=== PATIENT | female | born 1990 | race Two or more races ===

== ENCOUNTER 2021-02-21 11:10 | Emergency (ER) | payer MEDICAID, SELFPAY | END 2021-02-21 14:43 | disposition left against medical advice (07) | LOC: HO.ED 14:22 | PROVIDERS: Emergency Provider Emergency Medicine | DX: N94.89 Other specified conditions associated with female genital organs and menstrual cycle (principal) ==

== ENCOUNTER 2021-02-21 23:32 | Emergency (ER) | payer MEDICAID, SELFPAY ==
[2021-02-21 23:50] VITALS: BP 112/75; PULSE 98; RESP 20; TEMP 36.6; O2SAT 100; BMI 23.8
== END 2021-02-22 00:06 | disposition left against medical advice (07) ==
PROVIDERS: Emergency Provider Emergency Medicine
DX: N89.8 Other specified noninflammatory disorders of vagina (principal); Z20.2 Contact with and (suspected) exposure to infections with a predominantly sexual mode of transmission
CPT/HCPCS: 99281; 99282

== ENCOUNTER 2021-02-23 01:42 | Emergency (ER) | payer MEDICAID, SELFPAY ==
[2021-02-23 01:57] VITALS: BP 111/75; PULSE 92; RESP 16; TEMP 36.6; O2SAT 100; BMI 26.9
--- NOTE | 2021-02-23 04:03 | ED.FEMALEGU ---
HPI - Female Genitourinary General Chief complaint: Urogenital-Female Stated complaint: ?Tampon stuck Time Seen by Provider: 02/23/21 03:56 Source: patient Limitations: no limitations History of Present Illness HPI Narrative: This is a 30-year-old female who has noted for the last few days that she has had malodorous vaginal discharge. She is concerned she might have left a tampon in. She. She denies any fever. She denies any dysuria or urinary frequency. She has had some mild pelvic cramping. She denies any nausea vomiting Related Data Previous Rx's Medication Instructions Recorded cephalexin 500 mg capsule 500 mg PO TID #20 cap 02/23/21 metronidazole 500 mg tablet 500 mg PO Q12H #14 tab 02/23/21 Allergies Allergy/AdvReac Type Severity Reaction Status Date / Time Penicillins [PCN] Allergy Unknown Verified 02/21/21 23:55 Review of Systems Constitutional: Constitutional: Denies fever(s) Gastrointestinal: Gastrointestinal: Denies nausea and Denies vomiting Genitourinary: Genitourinary: Reports as per HPI Neurologic: Denies Sensory deficit (Neuro) [facility] Past Medical History Medical History (Updated 02/23/21 @ 06:16 by Roberto Hull MD) No known health problems Social History Social History Advance Directives: No Patient : No Physical Exam Vital Signs: Vital Signs: Last Vital Signs Temp 98.5 F 02/23/21 04:40 Pulse 92 02/23/21 04:40 Resp 16 02/23/21 04:40 BP 107/69 02/23/21 04:40 Pulse Ox 100 02/23/21 04:40 BMI result Body Mass Index 26.9 Const: Other: patient initially deeply asleep General: cooperative, no acute distress and alert Orientation/consciousness: patient oriented x3 HENMT: Head: Yes normal to inspection Eyes: General: appearance normal, both eyes and all related structures Eyelids: Yes eyelids normal Conjunctivae: conjunctivae normal Pupils: Equal, round and reactive pupils present Neck: Neck: Yes normal visual inspection and Yes supple Chest: Chest palpation & inspection: normal inspection of the chest Resp: Effort & Inspection: normal respiratory effort Auscultation: clear to auscultation bilaterally Cardio: Rate: regular rate Rhythm: regular rhythm Heart sounds: S1 normal heart sound present, S2 normal heart sound present, no gallops, no murmurs and no rubs GI: Palpation (GI): Soft to palpation, nontender and Other GI palpation findings present (Non-distended) Auscultation: normal bowel sounds : External Female Exam: normal external appearance Speculum Exam - Vagina: foreign body ( engorged tampon approximately 2 and half by 2 x 1 in, very malodorous) Speculum Exam - Cervix: abnormal appearance of the cervix ( Mildly erythematous, friable) OB/external & speculum: foreign body ( engorged tampon approximately 2 and half by 2 x 1 in, very malodorous) Skin: General skin exam: no rashes or lesions noted Neuro: General: patient oriented x3, no focal motor deficits and CN's II-XI intact bilaterally Cranial nerves: Yes Equal, round and reactive pupils present Cognition (Neuro): normal cognition Motor exam (neuro): 5/5 motor strength present throughout Sensory Exam: No Sensory deficit (Neuro) Extrem: General: Yes normal to inspection and Yes no pedal edema Psych: Appearance: grossly normal Affect: normal affect MDM - Female Genitourinary MDM Narrative Medical decision making narrative: extremely malodorous tampon in the vaginal vault adjacent to the cervix, removed with ring forceps. Cervix appeared mildly erythematous and was friable upon swabbing with mild bleeding. Patient likely will improve now that the tampon has been removed. Will prescribe antibiotics to cover staph and bacterial vaginitis. BV and gonorrhea chlamydia swab sent Discharge Plan Discharge Clinical Impression: Retained tampon Patient Disposition: Home, Self-Care Instructions: Vaginal Foreign Body (ED) Additional Instructions: Take the antibiotics as prescribed. Return for any increased pelvic pain or fever. Follow up with your OBGYN. Prescriptions: New cephalexin 500 mg capsule 500 mg PO TID Qty: 20 RF: 0 metronidazole 500 mg tablet 500 mg PO Q12H Qty: 14 RF: 0
--- NOTE | 2021-02-23 04:31 | PC.NURSE ---
pt ambulated to room 8 with a steady gait. pt had no sob, and instructed to undress from the waist up for xray. pt was up set with this and threw the curtain open.
[2021-02-23 04:40] VITALS: BP 107/69; PULSE 92; RESP 16; TEMP 36.9; O2SAT 100
[2021-02-23 08:41] LABS: BV Int Neg Control Negative (Negative); BV Int Pos Control Positive (Positive)
[2021-02-23 11:05] LABS: CT PCR NOT DETECTED (Not Detect.); NG PCR NOT DETECTED (Not Detect.)
== END 2021-02-23 06:39 | disposition home or self-care (01) ==
PROVIDERS: Emergency Provider Emergency Medicine
DX: N89.8 Other specified noninflammatory disorders of vagina (principal); T19.2XXA Foreign body in vulva and vagina, initial encounter; M79.5 Residual foreign body in soft tissue; X58.XXXA Exposure to other specified factors, initial encounter
CPT/HCPCS: 87480; 87491; 87510; 87591; 87660; 99283; 99284